=== PATIENT | male | born 1985 | race Two or more races ===

== ENCOUNTER 2018-06-07 16:56 | Emergency (ER) | payer SELFPAY ==
[~2018-06-07] VITALS: Ht 167.6 cm; Wt 106.6 kg
[2018-06-07 17:10] VITALS: BP 159/97
[2018-06-07] MEDS ORDERED: DEXAMETHASONE SOD PHOS 20 MG/5 ML VIAL. PO ONE (18:00)
[2018-06-07] MEDS ORDERED: IBUPROFEN 400 MG TABLET. PO ONE (18:00)
[2018-06-07] MEDS ORDERED: AMOX500C PO (18:43)
--- NOTE | 2018-06-07 18:44 | PHYS DOC ---
Past Medical History Past Medical History: No Pertinent History (NICO FRANK APRN) Past Surgical History: No Surgical History (NICO FRANK APRN) Smoking: Cigarettes (NICO FRANK APRN) Adult General Chief Complaint Chief Complaint: SWALLOWED FORIEGN BODY HPI HPI 32-year-old male presents to ER for complaints of right sided throat pain with concerns he may have a fishbone stuck in his throat. Pt speaks minimal Portuguese so translation phone was utilized for communication. Patient reports last night while eating he was having pain while swallowing and felt he may have had a fishbone stuck in his throat. On exam patient has significant bilateral tonsillar swelling with erythema. During discussion he also reports he has had right earache. He denies fever, N/V/D, SOA, cough, or CP. He denies any over-the -counter medications for pain today. He reports he has eaten without any difficulty swallowing. He denies any vomiting after eating. (NICO FRANK APRN) Review of Systems Review of Systems Constitutional: Denies fever or chills [] Eyes: Denies change in visual acuity, redness, or eye pain [] HENT: Denies nasal congestion. Reports sore throat on rt side. Reports rt ear ache. Denies difficulty swallowing or pooling of secretions Respiratory: Denies cough or shortness of breath [] Cardiovascular: Denies CP GI: Denies abdominal pain, nausea, vomiting Musculoskeletal: Denies back/neck pain or joint pain [] Integument: Denies rash or skin lesions [] Neurologic: Denies headache, focal weakness or sensory changes [] All other systems were reviewed and found to be within normal limits, except as documented in this note. (NICO FRANK APRN) Current Medications Current Medications Current Medications Medications (Trade) Dose Ordered Sig/Zoraida Start Time Stop Time Status Last Admin Dose Admin Dexamethasone Sodium Phosphate (Decadron) 10 mg 1X ONCE 06/07/18 18:00 06/07/18 18:52 DC 06/07/18 18:54 10 MG Ibuprofen (Motrin) 800 mg 1X ONCE 06/07/18 18:00 06/07/18 18:21 DC 06/07/18 18:55 800 MG (SOFÍA AGUILA MD) Allergies Allergies Allergies Coded Allergies Type Severity Reaction Last Updated Verified No Known Drug Allergies 06/07/18 No (SOFÍA AGUILA MD) Physical Exam Physical Exam Constitutional: Well developed, well nourished, no acute distress, non-toxic appearance. Clear speech. Voice is non-muffled HENT: Normocephalic, atraumatic, lt ear normal limits exam, right ear with erythema at the tympanic membrane without bulging, perforation, or purulent drainage. Oropharynx moist-bilateral tonsillar swelling with erythema, uvula midline, no oral exudates, nose normal. No pooling of secretions. Patient having no difficulty swallowing Eyes: Pupils equal, conjunctiva normal, no discharge. [] Neck: Normal range of motion, no tenderness, supple, bilateral submandibular adenopathy with tenderness on right side palpation. Trachea midline Cardiovascular: Heart rate regular rhythm, no murmur [] Lungs & Thorax: Bilateral breath sounds clear to auscultation. Resp. equal/ nonlabored Abdomen: Bowel sounds normal, soft, no tenderness Skin: Warm, dry, no erythema, no rash. [] Back: No tenderness, no CVA tenderness. [] Extremities: No tenderness, no cyanosis, no clubbing, ROM intact, no edema. [] Neurologic: Alert and oriented X 3, normal motor function, normal sensory function, no focal deficits noted. [] Psychologic: Affect normal, judgement normal, mood normal. [] (NICO FRANK APRN) Current Patient Data Vital Signs Vital Signs Date Time Temp Pulse Resp B/P (MAP) Pulse Ox O2 Delivery O2 Flow Rate FiO2 06/07/18 17:10 98.7 74 18 159/97 (117) 98 Room Air 98.7 (SOFÍA AGUILA MD) EKG EKG [] (NICO FRANK APRN) Radiology/Procedures Radiology/Procedures [] (NICO FRANK APRN) Course & Med Decision Making Course & Med Decision Making Pertinent Labs reviewed. (See chart for details) Patient was evaluated in the ER for concerns that he had a fishbone stuck in his throat as he had pain while swallowing his dinner last night. Patient states he did take naproxen yesterday with some improvement in pain. Patient denied any [id number] medications today for pain. Patient reports he has eaten today denying any nausea or vomiting, difficulty swallowing, or pooling of secretions. Discussion had with patient regarding his concerns for possible bone in his throat following discussion patient was comfortable with plan of care as he had no idea he had swollen tonsils. Patient on exam had bilateral tonsillar swelling with erythema. No exudate. Patient had positive strep test was discussed with him. Patient had bilateral submandibular lymphadenopathy. Patient was speaking in full sentences without muffled voice. He had no difficulty swallowing or pooling of secretions during his evaluation. Discussed strep test diagnosis with plans for home discharge with amoxicillin prescription. Advised on need for increased fluids. Patient advised on use of Tylenol and/or ibuprofen for fever/pain. Smoking cessation was discussed. Patient was provided with dose of ibuprofen and Decadron while in the ER. At time of discharge patient was in no visible distress. Education provided on signs and symptoms to return to ER. Discharge instructions were discussed. Patient to follow-up with primary care physician if symptoms persist or with any concerns. (NICO FRANK APRN) Course & Med Decision Making I was not involved in the care of this patient after 1800. Dr Aguila (SOFÍA AGUILA MD) Dragon Disclaimer Dragon Disclaimer This electronic medical record was generated, in whole or in part, using a voice recognition dictation system. (NICO FRANK APRN) Departure Departure Impression: Primary Impression: Strep throat Disposition: 01 HOME, SELF-CARE Condition: STABLE Referrals: NO PCP (PCP) Patient Instructions: Strep Throat Additional Instructions: Drink plenty of fluids. Tylenol and/or Ibuprofen as needed for pain/fever as directed on container. Avoid smoking. Finish entire prescription of antibiotics. Follow-up with your doctor for re-evaluation if symptoms persist or with concerns. Scripts Amoxicillin (AMOXICILLIN) 500 Mg Capsule 1 CAP PO BID, #20 CAP 0 Refills Prov: NICO FRANK APRN 06/07/18 NICO FRANK APRN Jun 07, 2018 18:44 SOFÍA AGUILA MD Jun 08, 2018 06:19
== END 2018-06-07 18:58 | disposition home or self-care (01) ==
LOC: ER 16:56
DX: J02.9 Acute pharyngitis, unspecified (principal); H92.01 Otalgia, right ear; F17.210 Nicotine dependence, cigarettes, uncomplicated
CPT/HCPCS: 87880; 99283; J1100